=== PATIENT | female | born 1995 | race Caucasian/White ===

== ENCOUNTER 2017-05-27 13:25 | Observation (INO) | payer MEDICAID ==
[~2017-05-27] VITALS: Ht 170.2 cm; Wt 68.0 kg
[~2017-05-27 13:25] MED LIST: PREN-145 OR
[2017-05-27] MEDS ORDERED: TERBUTALINE SULFATE 1 MG/ML 1ML VIAL SC STA (14:05)
[2017-05-27 15:07] LABS: Urine Bacteria NONE SEEN /hpf (None Seen); Urine Blood Negative /uL (Negative); Urine Specific Gravity 1.002 (1.001-1.035); Urine WBC 1 /hpf (0 - 5)
[2017-05-27 15:24] LABS: Alcohol, Urine < 3.0 mg/dL (0-5); Amphetamine Screen, Urine NEGATIVE (NEGATIVE); Barbiturate Scree,Urine NEGATIVE (NEGATIVE); Benzodiazephine Screen, Urine NEGATIVE (NEGATIVE); Cannabinoid Screen, Urine POSITIVE (NEGATIVE); Cocaine Screen, Urine NEGATIVE (NEGATIVE); Opiate Scree,Urine NEGATIVE (NEGATIVE); Phencyclidine Screen, Urine NEGATIVE (NEGATIVE)
[2017-05-28] MEDS ORDERED: NIF10C PO (21:15)
== END 2017-05-27 16:00 | disposition home or self-care (01) | DRG 566 ==
LOC: LDRP 13:25
PROVIDERS: ADMIT Obstetrics & Gynecology; ATTEND Obstetrics & Gynecology
DX: O62.9 Abnormality of forces of labor, unspecified (principal); O60.03 Preterm labor without delivery, third trimester; Z3A.32 32 weeks gestation of pregnancy
CPT/HCPCS: 59025; 76815; 80307; 81001; 81002; 96372; G0378; J3105

== ENCOUNTER 2017-05-28 18:30 | Observation (INO) | payer MEDICAID ==
[2017-05-28] MEDS ORDERED: NIFEdipine 10 MG CAP ONE (19:09)
[2017-05-28] MEDS ORDERED: NIFEdipine 10 MG CAP PO ONE (19:15)
[2017-05-28] MEDS ORDERED: NIF10C PO (21:15)
== END 2017-05-28 19:40 | disposition home health service (06) | DRG 563 ==
LOC: LDRP 18:30
PROVIDERS: ADMIT Obstetrics & Gynecology; ATTEND Obstetrics & Gynecology
DX: O60.00 Preterm labor without delivery, unspecified trimester (principal); Z3A.00 Weeks of gestation of pregnancy not specified
CPT/HCPCS: 59025; 81002; G0378

== ENCOUNTER 2017-05-30 07:10 | Observation (INO) | payer MEDICAID ==
[~2017-05-30] VITALS: Ht 30.5 cm; Wt 0.5 kg
[~2017-05-30 07:10] MED LIST changes: +NIF10C PO
[2017-05-30 08:24] LABS: Urine Bacteria FEW /hpf (None Seen); Urine Blood Negative /uL (Negative); Urine Mucus FEW (None Seen); Urine Specific Gravity 1.014 (1.001-1.035); Urine WBC 22 /hpf (0 - 5)
[2017-05-30 08:25] LABS: Alcohol, Urine < 3.0 mg/dL (0-5); Amphetamine Screen, Urine NEGATIVE (NEGATIVE); Barbiturate Scree,Urine NEGATIVE (NEGATIVE); Benzodiazephine Screen, Urine NEGATIVE (NEGATIVE); Cannabinoid Screen, Urine POSITIVE (NEGATIVE); Cocaine Screen, Urine NEGATIVE (NEGATIVE); Opiate Scree,Urine NEGATIVE (NEGATIVE); Phencyclidine Screen, Urine NEGATIVE (NEGATIVE)
[2017-05-30] MEDS ORDERED: LACT. RINGERS/OXYTOCIN 20UNITS 1,000 ML IV SCH (09:27)
[2017-05-30] MEDS ORDERED: LACTATED RINGER'S 1,000 ML IV SCH (09:27)
[2017-05-30] MEDS ORDERED: METHYLERGONOVINE MALEATE 0.2 MG/ML AMP IM PRN (09:30)
[2017-05-30] MEDS ORDERED: NALBUPHINE HCL 10 MG/1ml INJECTION IV PRN (09:30)
[2017-05-30] MEDS ORDERED: CARBOPROST TROMETHAMINE 250 MCG/1ML VIAL IM PRN (09:30)
[2017-05-30] MEDS ORDERED: LIDOCAINE 2% (LOCAL ANESTH.) PF 5ml SDV ID ONE (09:30)
[2017-05-30] MEDS ORDERED: WITCH HAZEL-GLYCERIN PAD TOP PRN (09:30)
[2017-05-30] MEDS ORDERED: PHISODERM TOP SOLN 240ML BTL TOP PRN (09:30)
[2017-05-30] MEDS ORDERED: DERMOPLAST 60ML BOTTLE TOP PRN (09:30)
== END 2017-05-30 08:13 | disposition home or self-care (01) | DRG 563 ==
LOC: LDRP 07:10 → SUR 07:10 → EDSTATUS 07:21
PROVIDERS: ADMIT Specialist; ATTEND Specialist
DX: O60.03 Preterm labor without delivery, third trimester (principal); Z3A.32 32 weeks gestation of pregnancy
CPT/HCPCS: 59025; 80307; 81001; 81002; G0378

== ENCOUNTER 2017-06-05 13:00 | Observation (INO) | payer MEDICAID | END 2017-06-05 14:20 | disposition home or self-care (01) | DRG 563 | LOC: LDRP 13:00 → UNDODISOB 14:20 | PROVIDERS: ADMIT Specialist; ATTEND Specialist | DX: O60.03 Preterm labor without delivery, third trimester (principal); Z3A.33 33 weeks gestation of pregnancy | CPT/HCPCS: 59025; 81002; G0378 ==

== ENCOUNTER 2017-06-12 13:10 | Observation (INO) | payer MEDICAID | END 2017-06-12 14:05 | disposition home or self-care (01) | DRG 563 | LOC: LDRP 13:10 | PROVIDERS: ADMIT Obstetrics & Gynecology; ATTEND Obstetrics & Gynecology | DX: O60.03 Preterm labor without delivery, third trimester (principal); O99.323 Drug use complicating pregnancy, third trimester; F19.10 Other psychoactive substance abuse, uncomplicated; Z3A.34 34 weeks gestation of pregnancy | CPT/HCPCS: 59025; 81002; G0378 ==

== ENCOUNTER 2017-06-19 12:20 | Observation (INO) | payer MEDICAID ==
[2017-06-19] MEDS ORDERED: TERBUTALINE SULFATE 1 MG/ML 1ML VIAL SC SCH (13:30)
== END 2017-06-19 14:35 | disposition home or self-care (01) | DRG 563 ==
LOC: LDRP 12:20
PROVIDERS: ADMIT Obstetrics & Gynecology; ATTEND Obstetrics & Gynecology
DX: O60.03 Preterm labor without delivery, third trimester (principal); O99.323 Drug use complicating pregnancy, third trimester; F19.10 Other psychoactive substance abuse, uncomplicated; Z3A.35 35 weeks gestation of pregnancy
CPT/HCPCS: 59025; 81002; 96372; G0378; J3105

== ENCOUNTER 2017-06-25 11:00 | Observation (INO) | payer MEDICAID | END 2017-06-25 12:30 | disposition home or self-care (01) | DRG 566 | LOC: LDRP 11:00 | PROVIDERS: ADMIT Obstetrics & Gynecology; ATTEND Obstetrics & Gynecology | DX: O62.9 Abnormality of forces of labor, unspecified (principal); O60.03 Preterm labor without delivery, third trimester; Z3A.36 36 weeks gestation of pregnancy | CPT/HCPCS: 59025; 76818; 81002; G0378 ==

== ENCOUNTER 2017-06-30 19:36 | Observation (INO) | payer MEDICAID ==
[~2017-06-30 19:36] MED LIST changes: -NIF10C PO
[2017-06-30 20:32] LABS: Urine Amorphous Crystal FEW /hpf (None Seen); Urine Bacteria FEW /hpf (None Seen); Urine Blood Negative /uL (Negative); Urine Specific Gravity 1.007 (1.001-1.035); Urine WBC 38 /hpf (0 - 5)
[2017-06-30 20:55] LABS: Alcohol, Urine < 3.0 mg/dL (0-5); Amphetamine Screen, Urine NEGATIVE (NEGATIVE); Barbiturate Scree,Urine NEGATIVE (NEGATIVE); Benzodiazephine Screen, Urine NEGATIVE (NEGATIVE); Cannabinoid Screen, Urine POSITIVE (NEGATIVE); Cocaine Screen, Urine NEGATIVE (NEGATIVE); Opiate Scree,Urine NEGATIVE (NEGATIVE); Phencyclidine Screen, Urine NEGATIVE (NEGATIVE)
== END 2017-06-30 20:37 | disposition home or self-care (01) | DRG 566 ==
LOC: LDRP 19:36
PROVIDERS: ADMIT Obstetrics & Gynecology; ATTEND Obstetrics & Gynecology
DX: O26.893 Other specified pregnancy related conditions, third trimester (principal); R10.9 Unspecified abdominal pain; Z3A.37 37 weeks gestation of pregnancy
CPT/HCPCS: 80307; 81001; G0378; 59025

== ENCOUNTER 2017-07-10 12:25 | Inpatient (IN) | payer MEDICAID ==
[~2017-07-10] VITALS: Ht 170.2 cm; Wt 71.7 kg
[2017-07-10] MEDS ORDERED: LACT. RINGERS/OXYTOCIN 20UNITS 1,000 ML IV SCH (15:03)
[2017-07-10] MEDS ORDERED: PHISODERM TOP SOLN 240ML BTL TOP PRN (15:15)
[2017-07-10] MEDS ORDERED: DERMOPLAST 60ML BOTTLE TOP PRN (15:15)
[2017-07-10] MEDS ORDERED: METHYLERGONOVINE MALEATE 0.2 MG/ML AMP IM PRN (15:15)
[2017-07-10] MEDS ORDERED: WITCH HAZEL-GLYCERIN PAD TOP PRN (15:15)
[2017-07-10] MEDS ORDERED: NALBUPHINE HCL 10 MG/1ml INJECTION IV PRN (15:15)
[2017-07-10] MEDS ORDERED: LIDOCAINE 2% (LOCAL ANESTH.) PF 5ml SDV ID ONE (15:15)
[2017-07-10 15:37] LABS: Basophils # (auto) 0.1 uL; Basophils % (auto) 0.4 % (0.0-2.0); Eosinophils # (auto) 0 uL; Eosinophils % (auto) 0.1 % (0.0-7.0); Hematocrit 38.5 % (36.0-46.0); Hemoglobin 12.9 g/dL (12.2-16.2); Lymphocytes # (auto) 3.2 uL; Mean Corpuscular Hgb Conc. 33.5 g/dL (32.0-36.0); Mean Corpuscular Volume 92.7 fL (80.0-100.0); Monocytes # (auto) 1.1 uL; Monocytes % (auto) 4.7 % (0.0-12.0); Neutrophils # (auto) 19.8 uL; Neutrophils % (auto) 81.8 % (37.0-80.0); Platelet Count (auto) 252 10^3/uL (140-450); Red Blood Cells 4.15 10^6/uL (4.0-5.20); White Blood Cell 24.3 10^3/uL (4.4-10.8)
[2017-07-10 15:56] LABS: INR 0.86 (0.9-1.15); Partial Thromboplastin Time 24.3 sec (23.78-33.04); Prothrombin Time 9.3 sec (9.27-12.13)
[2017-07-10 16:00] LABS: Albumin 2.7 g/dL (3.4-5.0); BUN/Creatinine Ratio 9.6; Calcium 8.6 mg/dL (8.5-10.1); Potassium 3.5 mmol/L (3.5-5.1)
[2017-07-10 16:03] LABS: Bilirubin, Total 0.4 mg/dL (0.2-1.0); Total Protein 7.1 g/dL (6.4-8.2)
[2017-07-10 16:23] LABS: Alcohol, Urine < 3.0 mg/dL (0-5); Amphetamine Screen, Urine NEGATIVE (NEGATIVE); Barbiturate Scree,Urine NEGATIVE (NEGATIVE); Benzodiazephine Screen, Urine NEGATIVE (NEGATIVE); Cannabinoid Screen, Urine NEGATIVE (NEGATIVE); Cocaine Screen, Urine NEGATIVE (NEGATIVE); Opiate Scree,Urine NEGATIVE (NEGATIVE); Phencyclidine Screen, Urine NEGATIVE (NEGATIVE)
[2017-07-10 16:41] LABS: Urine Bacteria NONE SEEN /hpf (None Seen); Urine Blood Negative /uL (Negative); Urine Specific Gravity 1.003 (1.001-1.035); Urine WBC 1 /hpf (0 - 5)
[2017-07-10] MEDS ORDERED: fentaNYL W ROPIVACAINE 150 ML EPI SCH ×2 (17:15→18:15)
[2017-07-10] MEDS ORDERED: ePHEDrine SULFATE 50 MG/ML AMP IV ONE ×2 (17:15→18:15)
[2017-07-10] MEDS ORDERED: NALOXONE HCL 0.4 MG/ML VIAL IV ONE ×2 (17:15→18:15)
[2017-07-10] MEDS ORDERED: fentaNYL CITRATE 100 MCG/2 ML VL IV ONE (17:15)
[2017-07-10] MEDS ORDERED: LIDOCAINE HCL 2 %PF INJ 10ML AMP IJ ONE (17:15)
[2017-07-10] MEDS ORDERED: LIDOCAINE 2% (LOCAL ANESTH.) PF 5ml SDV IJ ONE (18:15)
[2017-07-10] MEDS: LACTATED RINGER'S 1,000 ML IV SCH ×2 (19:00→23:03)
[2017-07-10] MEDS ORDERED: IBUPROFEN 600 MG TAB PO PRN (21:00)
[2017-07-10] MEDS: IBUPROFEN 600 MG TAB PO PRN (23:10)
[2017-07-11] MEDS: ACETAMINOPHEN 325 MG TAB PO PRN ×4 (02:39→19:49)
[2017-07-11 03:40] VITALS: BP 104/50
[2017-07-11 04:11] LABS: RPR Non Reactive (Non Reactive)
[2017-07-11] MEDS: IBUPROFEN 600 MG TAB PO PRN ×3 (05:35→17:31)
[2017-07-11] MEDS: LACTATED RINGER'S 1,000 ML IV SCH (07:03)
[2017-07-11] MEDS ORDERED: DOCUSATE CALCIUM 240 MG CAP PO SCH (10:00)
[2017-07-11 11:18] VITALS: BP 108/58
[2017-07-11 15:35] VITALS: BP 118/58
== END 2017-07-11 21:00 | disposition home or self-care (01) | DRG 560 ==
LOC: LDRP 12:25 → OBSVTOIN 14:40
PROVIDERS: ADMIT Specialist; ATTEND Specialist
PROC: 10E0XZZ Delivery of Products of Conception, External Approach (ICD-10-PCS; principal; 2017-07-10)
PROC: 0HQ9XZZ Repair Perineum Skin, External Approach (ICD-10-PCS; 2017-07-10)
PROC: 10907ZC Drainage of Amniotic Fluid, Therapeutic from Products of Conception, Via Natural or Artificial Opening (ICD-10-PCS; 2017-07-10)
PROC: 00HU33Z Insertion of Infusion Device into Spinal Canal, Percutaneous Approach (ICD-10-PCS; 2017-07-10)
PROC: 3E0R3BZ Introduction of Anesthetic Agent into Spinal Canal, Percutaneous Approach (ICD-10-PCS; 2017-07-10)
DX: O70.9 Perineal laceration during delivery, unspecified (principal); O72.1 Other immediate postpartum hemorrhage; Z88.1 Allergy status to other antibiotic agents; Z88.6 Allergy status to analgesic agent; Z37.0 Single live birth; Z3A.38 38 weeks gestation of pregnancy
CPT/HCPCS: 36415; 51702; 59025; 59409; 62282; 80053; 80307; 81001; 81002; 85025; 85610; 85730; 86592; 86850; 86900; 86901; 96365; 96366; G0378; J2590; J3010

== ENCOUNTER 2019-08-05 16:10 | Inpatient (IN) | payer MEDICAID ==
[~2019-08-05] VITALS: Ht 170.2 cm; Wt 70.8 kg
[2019-08-05] MEDS ORDERED: LACTATED RINGER'S 1,000 ML IV ONE (17:00)
[2019-08-05] MEDS ORDERED: TERBUTALINE SULFATE 1 MG/ML 1ML VIAL SC ONE (17:02)
[2019-08-05] MEDS: TERBUTALINE SULFATE 1 MG/ML 1ML VIAL SC SCH ×3 (17:05→18:25)
[2019-08-05 18:09] LABS: Urine Bacteria NONE SEEN /hpf (None Seen); Urine Blood Negative /uL (Negative); Urine Specific Gravity 1.001 (1.001-1.035); Urine WBC 1 /hpf (0 - 5)
[2019-08-05 18:21] LABS: Amphetamine Screen, Urine NEGATIVE (NEGATIVE); Barbiturate Scree,Urine NEGATIVE (NEGATIVE); Benzodiazephine Screen, Urine NEGATIVE (NEGATIVE); Cocaine Screen, Urine NEGATIVE (NEGATIVE); Opiate Scree,Urine NEGATIVE (NEGATIVE); Phencyclidine Screen, Urine NEGATIVE (NEGATIVE)
[2019-08-05 18:29] LABS: Cannabinoid Screen, Urine POSITIVE (NEGATIVE)
[2019-08-05 18:31] LABS: Alcohol, Urine < 3.0 mg/dL (0-10)
[2019-08-05] MEDS ORDERED: BETAMETHASONE ACET (6MG/ML) 5ML VIAL IM ONE (19:15)
[2019-08-05] MEDS ORDERED: NIFEdipine 10 MG CAP PO ONE ×2 (19:15→20:45)
[2019-08-05] MEDS ORDERED: MAGNESIUM SULFATE 40MG/ML 1,000 ML IV SCH (22:06)
[2019-08-05] MEDS ORDERED: LACTATED RINGER'S 1,000 ML IV SCH (22:06)
[2019-08-05] MEDS ORDERED: MAGNESIUM SULFATE 100 ML IV ONE (22:15)
[2019-08-06 01:27] LABS: Potassium 3.6 mmol/L (3.5-5.1)
[2019-08-06 01:50] LABS: Albumin 2.6 g/dL (3.4-5.0); BUN/Creatinine Ratio 7.4; Bilirubin, Total 0.3 mg/dL (0.2-1.0); Calcium 7.7 mg/dL (8.5-10.1); Magnesium,Therapeutic 4.3 mg/dL (4.0-7.1); Total Protein 6.6 g/dL (6.4-8.2)
[2019-08-06] MEDS ORDERED: CEFTRIAXONE SODIUM 2 GM in D5W 5% 50 ML IV ONE (08:15)
[2019-08-06] MEDS ORDERED: SOD CHL 0.45% 1,000 ML IV SCH (08:15)
[2019-08-06] MEDS ORDERED: SODIUM CHLORIDE 0.9% 1,000 ML IV SCH (08:45)
[2019-08-06] MEDS ORDERED: MAGNESIUM SULFATE 40MG/ML 1,000 ML IV SCH (09:22)
[2019-08-06] MEDS: SODIUM CHLORIDE 0.9% 1,000 ML IV SCH ×2 (10:00→19:28)
[2019-08-06 12:47] LABS: INR 0.94 (0.9-1.15); Partial Thromboplastin Time 23.4 sec (23.64-32.05)
[2019-08-06 12:50] LABS: Hematocrit 38.6 % (36.0-46.0); Hemoglobin 12.8 g/dL (12.2-16.2); Mean Corpuscular Hemoglobin 30.7 pg (28.0-32.0); Mean Corpuscular Hgb Conc. 33.3 g/dL (32.0-36.0); Mean Corpuscular Volume 92.3 fL (80.0-100.0); Platelet Count (auto) 248 10^3/uL (140-450); Red Blood Cells 4.18 10^6/uL (4.0-5.20); Red Cell Distribution Width 13.3 % (11.8-14.3)
[2019-08-06 13:15] LABS: White Blood Cell 31.7 10^3/uL (4.4-10.8)
[2019-08-06 13:16] LABS: Band Neutrophils % (manual) 0; Basophils % (manual) 0 (0.0-2.0); Blast Cells 0; Eosinophils % (manual) 0 (0-7); Metamyelocytes % 0; Myelocytes % 0; Promyelocytes % 0; Reactive Lymphocytes 0
[2019-08-06 14:19] LABS: Hematocrit 35.6 % (36.0-46.0); Mean Corpuscular Hemoglobin 31.4 pg (28.0-32.0); Mean Corpuscular Hgb Conc. 33.8 g/dL (32.0-36.0); Platelet Count (auto) 236 10^3/uL (140-450); Red Blood Cells 3.82 10^6/uL (4.0-5.20); Red Cell Distribution Width 13.2 % (11.8-14.3)
[2019-08-06 14:28] LABS: White Blood Cell 31.3 10^3/uL (4.4-10.8)
[2019-08-06 14:29] LABS: Band Neutrophils % (manual) 0; Basophils % (manual) 0 (0.0-2.0); Blast Cells 0; Eosinophils % (manual) 0 (0-7); Metamyelocytes % 0; Myelocytes % 0; Promyelocytes % 0; Reactive Lymphocytes 0
[2019-08-06 15:38] LABS: Lymphocytes % (manual) 6 (10.0-50.0); Monocytes % (manual) 8 (0-12)
[2019-08-06 15:50] LABS: Lymphocytes % (manual) 6 (10.0-50.0); Monocytes % (manual) 8 (0-12)
[2019-08-06] MEDS ORDERED: BETAMETHASONE ACET (6MG/ML) 5ML VIAL IM ONE (19:30)
[2019-08-06] MEDS: cefTRIAXone 1GM/50ML D5W 50 ML IV SCH (20:56)
[2019-08-06] MEDS ORDERED: TERBUTALINE SULFATE 1 MG/ML 1ML VIAL SC PRN (21:30)
[2019-08-06] MEDS ORDERED: LACTATED RINGER'S 1,000 ML IV SCH (23:00)
[2019-08-07] MEDS ORDERED: NIFEdipine 10 MG CAP PO ONE (06:00)
[2019-08-07] MEDS: cefTRIAXone 1GM/50ML D5W 50 ML IV SCH (08:55)
[2019-08-07] MEDS ORDERED: NIFEdipine 10 MG CAP PO SCH (10:00)
--- NOTE | 2019-08-07 12:20 | NUR ---
IV removal IV DC'd x2 with sterile technique, catheter fully intact. Pressure dressing applied to site. Patient tolerated procedure well.
== END 2019-08-07 12:40 | disposition home or self-care (01) | DRG 563 ==
LOC: LDRP 16:10 → OBSVTOIN 23:00
PROVIDERS: ADMIT Specialist; ATTEND Specialist
DX: O60.03 Preterm labor without delivery, third trimester (principal); K08.89 Other specified disorders of teeth and supporting structures; Z3A.32 32 weeks gestation of pregnancy; Z11.59 Encounter for screening for other viral diseases
CPT/HCPCS: 36415; 59025; 76805; 80053; 80307; 81001; 81002; 83735; 85007; 85027; 85610; 85730; 86850; 86900; 86901; 87086; 87210; 94760; 94762; 96360; 96361; 96365; 96366; 96372; G0378; J0696; J7060

== ENCOUNTER 2019-08-10 09:17 | Observation (INO) | payer MEDICAID ==
[~2019-08-10] VITALS: Ht 165.1 cm; Wt 61.2 kg
[2019-08-10] MEDS ORDERED: NIF10C GT (09:39)
[2019-08-10] MEDS ORDERED: AMOX500T86 PO (09:41)
[2019-08-10] MEDS ORDERED: NIFEdipine 10 MG CAP PO ONE ×2 (12:00→16:30)
[2019-08-10] MEDS ORDERED: NIFEdipine 10 MG CAP ONE (12:08)
[2019-08-10] MEDS ORDERED: TERBUTALINE SULFATE 1 MG/ML 1ML VIAL SC ONE (12:23)
[2019-08-10] MEDS ORDERED: TERBUTALINE SULFATE 1 MG/ML 1ML VIAL SC SCH (12:30)
[2019-08-10 16:08] LABS: Basophils # (auto) 0.1 10 ^3/uL (0-0.2); Basophils % (auto) 0.2 % (0.0-2.0); Eosinophils # (auto) 0.1 10 ^3/uL (0-0.8); Eosinophils % (auto) 0.4 % (0.0-7.0); Hematocrit 37.7 % (36.0-46.0); Hemoglobin 12.5 g/dL (12.2-16.2); Lymphocytes # (auto) 3.3 10 ^3/uL (0.4-5.4); Lymphocytes % (auto) 13.7 % (10.0-50.0); Mean Corpuscular Hemoglobin 30.8 pg (28.0-32.0); Mean Corpuscular Hgb Conc. 33.2 g/dL (32.0-36.0); Mean Corpuscular Volume 92.9 fL (80.0-100.0); Monocytes # (auto) 1.6 10 ^3/uL (0-1.3); Monocytes % (auto) 6.6 % (0.0-12.0); Neutrophils % (auto) 79.1 % (37.0-80.0); Platelet Count (auto) 248 10^3/uL (140-450); Red Blood Cells 4.06 10^6/uL (4.0-5.20); Red Cell Distribution Width 13.1 % (11.8-14.3)
[2019-08-10 16:23] LABS: INR 0.95 (0.9-1.15); Partial Thromboplastin Time 22.8 sec (23.64-32.05)
[2019-08-10 16:26] LABS: Albumin 2.8 g/dL (3.4-5.0); Calcium 8.3 mg/dL (8.5-10.1); Potassium 3.6 mmol/L (3.5-5.1)
[2019-08-10 16:29] LABS: BUN/Creatinine Ratio 12.8; Bilirubin, Total 0.2 mg/dL (0.2-1.0); Total Protein 6.8 g/dL (6.4-8.2)
[2019-08-10 16:46] LABS: Urine Bacteria NONE SEEN /hpf (None Seen); Urine Blood Negative /uL (Negative); Urine Specific Gravity 1.006 (1.001-1.035); Urine WBC 42 /hpf (0 - 5)
[2019-08-10 16:50] LABS: Amphetamine Screen, Urine NEGATIVE (NEGATIVE); Barbiturate Scree,Urine NEGATIVE (NEGATIVE); Benzodiazephine Screen, Urine NEGATIVE (NEGATIVE); Cannabinoid Screen, Urine POSITIVE (NEGATIVE); Cocaine Screen, Urine NEGATIVE (NEGATIVE); Opiate Scree,Urine NEGATIVE (NEGATIVE); Phencyclidine Screen, Urine NEGATIVE (NEGATIVE)
[2019-08-10 17:01] LABS: Alcohol, Urine < 3.0 mg/dL (0-10)
== END 2019-08-10 17:45 | disposition home or self-care (01) | DRG 563 ==
LOC: LDRP 09:17
PROVIDERS: ADMIT Specialist; ATTEND Specialist
DX: O60.03 Preterm labor without delivery, third trimester (principal); O99.323 Drug use complicating pregnancy, third trimester; O62.9 Abnormality of forces of labor, unspecified; O26.893 Other specified pregnancy related conditions, third trimester; K04.7 Periapical abscess without sinus; Z3A.32 32 weeks gestation of pregnancy; Z91.19 Patient's noncompliance with other medical treatment and regimen
CPT/HCPCS: 36415; 59025; 76818; 80053; 80307; 81001; 81002; 84550; 85025; 85610; 85730; 96372; G0378; J3105

== ENCOUNTER 2019-08-18 08:43 | Observation (INO) | payer MEDICAID ==
[~2019-08-18 08:43] MED LIST changes: +AMOX500T86 PO; +NIF10C GT
== END 2019-08-18 09:17 | disposition home or self-care (01) | DRG 563 ==
LOC: LDRP 08:43
PROVIDERS: ADMIT Specialist; ATTEND Specialist
DX: O60.03 Preterm labor without delivery, third trimester (principal); Z3A.33 33 weeks gestation of pregnancy
CPT/HCPCS: 59025; 76818; 81002; G0378

== ENCOUNTER 2019-08-25 10:57 | Observation (INO) | payer MEDICAID | END 2019-08-25 12:45 | disposition home or self-care (01) | DRG 563 | LOC: LDRP 10:57 | PROVIDERS: ADMIT Specialist; ATTEND Specialist | DX: O60.03 Preterm labor without delivery, third trimester (principal); Z3A.34 34 weeks gestation of pregnancy | CPT/HCPCS: 59025; 76818; 81002; G0378 ==

== ENCOUNTER 2019-08-30 14:06 | Observation (INO) | payer MEDICAID | END 2019-08-30 15:21 | disposition home or self-care (01) | DRG 563 | LOC: LDRP 14:06 | PROVIDERS: ADMIT Specialist; ATTEND Specialist | DX: O60.03 Preterm labor without delivery, third trimester (principal); Z3A.35 35 weeks gestation of pregnancy | CPT/HCPCS: 59025; 76818; 81002; G0378 ==

== ENCOUNTER 2019-09-06 09:31 | Observation (INO) | payer MEDICAID | END 2019-09-06 10:30 | disposition home or self-care (01) | DRG 563 | LOC: LDRP 09:31 | PROVIDERS: ADMIT Specialist; ATTEND Specialist | DX: O60.03 Preterm labor without delivery, third trimester (principal); Z3A.36 36 weeks gestation of pregnancy | CPT/HCPCS: 59025; 76818; 81002; G0378 ==

== ENCOUNTER 2019-09-10 17:38 | Observation (INO) | payer MEDICAID ==
[~2019-09-10 17:38] MED LIST changes: -AMOX500T86 PO; -NIF10C GT
[2019-09-10 20:06] LABS: Alcohol, Urine < 3.0 mg/dL (0-10); Amphetamine Screen, Urine NEGATIVE (NEGATIVE); Barbiturate Scree,Urine NEGATIVE (NEGATIVE); Benzodiazephine Screen, Urine NEGATIVE (NEGATIVE); Cannabinoid Screen, Urine POSITIVE (NEGATIVE); Cocaine Screen, Urine NEGATIVE (NEGATIVE); Opiate Scree,Urine NEGATIVE (NEGATIVE); Phencyclidine Screen, Urine NEGATIVE (NEGATIVE)
== END 2019-09-10 19:27 | disposition home or self-care (01) | DRG 566 ==
LOC: LDRP 17:38
PROVIDERS: ADMIT Specialist; ATTEND Specialist
DX: O36.8130 Decreased fetal movements, third trimester, not applicable or unspecified (principal); Z3A.37 37 weeks gestation of pregnancy
CPT/HCPCS: 59025; 76818; 80307; 81002; G0378

== ENCOUNTER 2019-09-19 20:49 | Observation (INO) | payer MEDICAID | END 2019-09-19 21:35 | disposition home or self-care (01) | DRG 566 | LOC: LDRP 20:49 | PROVIDERS: ADMIT Specialist; ATTEND Specialist | DX: O62.9 Abnormality of forces of labor, unspecified (principal); Z3A.38 38 weeks gestation of pregnancy | CPT/HCPCS: 59025; 81002; G0378 ==

== ENCOUNTER 2019-09-20 17:45 | Inpatient (IN) | payer MEDICAID ==
[~2019-09-20] VITALS: Ht 170.2 cm; Wt 69.9 kg
[2019-09-20] MEDS ORDERED: LACT. RINGERS/OXYTOCIN 20UNITS 1,000 ML IV SCH (22:07)
[2019-09-20] MEDS ORDERED: LACTATED RINGER'S 1,000 ML IV SCH (22:07)
[2019-09-20] MEDS ORDERED: CARBOPROST TROMETHAMINE 250 MCG/1ML VIAL IM PRN (22:15)
[2019-09-20] MEDS ORDERED: WITCH HAZEL-GLYCERIN PAD TOP PRN (22:15)
[2019-09-20] MEDS ORDERED: PHISODERM TOP SOLN 240ML BTL TOP PRN (22:15)
[2019-09-20] MEDS ORDERED: DERMOPLAST 60ML BOTTLE TOP PRN (22:15)
[2019-09-20] MEDS ORDERED: BUTORPHANOL TARTRATE 2 MG/1 ML VIAL IV PRN (22:15)
[2019-09-20] MEDS ORDERED: LIDOCAINE 2%HCL (LOCAL ANESTH.) INJ 20ML MDV ID ONE (22:15)
[2019-09-20] MEDS ORDERED: METHYLERGONOVINE MALEATE 0.2 MG/ML AMP IM PRN (22:15)
--- NOTE | 2019-09-20 23:15 | NUR ---
Teaching: Reviewed information in [facility] [employer] booklet with patient. Discussed benefits of and risks associated with not . Discussed different positions, proper latch, feeding cues, and baby-led . Provided information of medication side effects related to . All questions and concerns addressed at this time. Patient verbalized understanding of information.
--- NOTE | 2019-09-20 23:40 | NUR ---
Bottle-feeding Education: Patient encouraged to breastfeed. Benefits of and the risk of providing formula to was discussed. Patient verbalized understanding of the benefits and is aware of risk and insists on bottle-feeding. Formula provided and instruction on formula preparation from the [facility] booklet reviewed with patient.
[2019-09-20] MEDS ORDERED: METHYLERGONOVINE MALEATE 0.2 MG/ML AMP IM ONE (23:45)
--- NOTE | 2019-09-20 23:46 | NUR ---
Pt states she takes ibuprofen at home for pain and pt states she is unsure if she is really allergic to aspirin, it was told by her mother that she was allergic to aspirin from a young age.
[2019-09-21] MEDS: IBUPROFEN 600 MG TAB PO PRN ×5 (00:02→23:57)
[2019-09-21 00:03] LABS: Hematocrit 37.5 % (36.0-46.0); Hemoglobin 12.5 g/dL (12.2-16.2); Mean Corpuscular Hgb Conc. 33.5 g/dL (32.0-36.0); Mean Corpuscular Volume 92.6 fL (80.0-100.0); Platelet Count (auto) 217 10^3/uL (140-450); Red Blood Cells 4.04 10^6/uL (4.0-5.20); Red Cell Distribution Width 13.6 % (11.8-14.3); White Blood Cell 28.3 10^3/uL (4.4-10.8)
[2019-09-21 00:09] LABS: Basophils % (manual) 0 (0.0-2.0); Blast Cells 0; Eosinophils % (manual) 0 (0-7); Metamyelocytes % 0; Myelocytes % 0; Promyelocytes % 0; Reactive Lymphocytes 0
[2019-09-21 00:11] LABS: Urine Bacteria NONE SEEN /hpf (None Seen); Urine Blood Negative /uL (Negative); Urine Specific Gravity 1.004 (1.001-1.035); Urine WBC 1 /hpf (0 - 5)
[2019-09-21 00:17] LABS: INR 0.92 (0.9-1.15); Partial Thromboplastin Time 23.5 sec (23.0-31.2)
[2019-09-21 00:19] LABS: Albumin 2.6 g/dL (3.4-5.0); Calcium 8.1 mg/dL (8.5-10.1)
[2019-09-21 00:22] LABS: BUN/Creatinine Ratio 10.3
[2019-09-21 00:25] LABS: Bilirubin, Total 0.3 mg/dL (0.2-1.0); Total Protein 6.6 g/dL (6.4-8.2)
[2019-09-21 00:26] LABS: Alcohol, Urine < 3.0 mg/dL (0-10); Amphetamine Screen, Urine NEGATIVE (NEGATIVE); Barbiturate Scree,Urine NEGATIVE (NEGATIVE); Benzodiazephine Screen, Urine NEGATIVE (NEGATIVE); Cannabinoid Screen, Urine POSITIVE (NEGATIVE); Cocaine Screen, Urine NEGATIVE (NEGATIVE); Opiate Scree,Urine NEGATIVE (NEGATIVE); Phencyclidine Screen, Urine NEGATIVE (NEGATIVE)
[2019-09-21 00:55] LABS: Band Neutrophils % (manual) 6; Lymphocytes % (manual) 8 (10.0-50.0); Monocytes % (manual) 2 (0-12)
--- NOTE | 2019-09-21 01:02 | NUR ---
Ambulation: Patient OOB with standby assistance by RN. Patient ambulated to bathroom with steady gait. Patient able to void 350cc without difficulty. [facility] teaching provided with returned demonstration by patient. Clean gown provided and bed linen changed. Patient ambulated back to bed with steady gait and no distress noted.
[2019-09-21] MEDS: ACETAMINOPHEN 325 MG TAB PO PRN ×4 (01:36→22:05)
[2019-09-21] MEDS ORDERED: PROMETHAZINE HCL 25 MG/ML 1ML IM ONE (02:00)
[2019-09-21 02:32] VITALS: BP 117/57
[2019-09-21 06:49] VITALS: BP 101/48
[2019-09-21 11:00] VITALS: BP 112/55
--- NOTE | 2019-09-21 12:00 | NUR ---
Assessment Patient is a 23-year old female who is alert and oriented. Social Service consult regarding mother tested Positive THC on this visit and Baby was negative for drug screen. Discussed with patient UDS and source of positive results. Patient stated she only consume one THC 1-2 times a week when she was unable to sleep. Patient resides with her significant other and will assistance with baby upon discharge. Patient has all supplies as well as car seat for baby and will be bottle feed/ breast feed. Patient has medical insurance for herself and baby and will be following up with provider appt post discharge. Pt has transportation home upon discharge. Due to baby drug screen being negative, CPS will not be contacted. Patient has family support. Baby father was at bedside. Informed HARLEY Gibbs.
[2019-09-21 14:43] VITALS: BP 101/49
[2019-09-21 18:34] VITALS: BP 114/57
--- NOTE | 2019-09-21 18:52 | NUR ---
IV removal IV DC'd per 's orders, with clean sterile technique, catheter fully intact. Pressure dressing applied to site. Patient tolerated well.
[2019-09-21 23:08] VITALS: BP 120/78
[2019-09-22] MEDS: ACETAMINOPHEN 325 MG TAB PO PRN (01:21)
[2019-09-22 03:03] VITALS: BP 105/51
[2019-09-22 05:06] LABS: RPR Non Reactive (Non Reactive)
[2019-09-22] MEDS: IBUPROFEN 600 MG TAB PO PRN (05:28)
[2019-09-22 06:37] VITALS: BP 115/56
--- NOTE | 2019-09-22 08:24 | NUR ---
Discharge: Discharge instructions given as ordered. Pt encouraged to follow up with [facility] ATTENDANT as instructed. All questions and concerns addressed. Patient verbalized understanding. Medication reconciliation completed and copy given to patient. Patient encouraged to prepare to depart unit. Discharge: Patient taken to vehicle via ambulation with all personal belongings, accompanied by staff and family member. No distress noted at time of departure, no adverse changes in status since initial assessment.
== END 2019-09-22 08:24 | disposition home or self-care (01) | DRG 560 ==
LOC: LDRP 17:45 → UNDOADMOB 19:43 → LDRP 19:43 → INTOOBSV 21:51 → OBSVTOIN 21:51
PROVIDERS: ADMIT Specialist; ATTEND Specialist
PROC: 10E0XZZ Delivery of Products of Conception, External Approach (ICD-10-PCS; principal; 2019-09-20)
DX: O69.1XX0 Labor and delivery complicated by cord around neck, with compression, not applicable or unspecified (principal); Z37.0 Single live birth; Z3A.38 38 weeks gestation of pregnancy; Z88.6 Allergy status to analgesic agent; Z11.59 Encounter for screening for other viral diseases
CPT/HCPCS: 36415; 59025; 59409; 80053; 80307; 81001; 81002; 84112; 85007; 85027; 85610; 85730; 86592; 86850; 86900; 86901; 96360; 96361; 96365; 96372; 96374; G0378; J2590

== ENCOUNTER 2023-12-23 22:21 | Observation (INO) | payer MEDICAID ==
[~2023-12-23] VITALS: Ht 170.2 cm; Wt 72.6 kg
[2023-12-23] MEDS ORDERED: ONDANSETRON HCL 4 MG/2 ML VIAL IV ONE (23:00)
[2023-12-23] MEDS: LACTATED RINGER'S 1,000 ML IV ONE (23:13)
[2023-12-24 00:16] LABS: Rapid Influenza A Negative (Negative); Rapid Influenza B Negative (Negative)
[2023-12-24 00:17] LABS: COVID19 ANTIGEN SOFIA FIA NEGATIVE (NEGATIVE)
--- NOTE | 2023-12-24 00:56 | DVHDS2 ---
Physician Discharge Progress N Final Diagnosis: N/V and cold Operations or Procedures: Operations or Procedures S: 28yo IUP@23+wks presents to OB triage with c/o DFM and N/V with a cold. Denies VB. Had sex yesterday and has been vomiting today, so noticed random uterine cramps during the day. PNC with Dr. Hsu, uncomplicated. Pt reports +FM in triage. O: VSS UA wnl 1L LR IV bolus given Pt declined zofran. FHR 135 by RN Laboratory Tests Test 12/23/23 23:00 Range/Units Influenza Type A Antigen Negative Negative Influenza Type B Antigen Negative Negative SARS-CoV-2 Antigen (Rapid) Negative NEGATIVE A: 28yo IUP@23+wks N/V and cold P: D/C home Pt educated that FKC start at 28 weeks PO hydrate at home Dr. Hsu consulted, agrees with POC. Condition on Discharge: Stable Disposition: Home Discharge Instructions: Diet: Regular Activity: No Restrictions, As Tolerated Medications: PNV Follow Up Care: Specialist: f/u with Dr. Hsu as scheduled Discharge Statement: "Patient was advised to return to the ER or call 911 if any headaches, dizziness, shortness of breath, chest pain, abdominal pain, bleeding, fevers, or worsening of medical condition. Patient was counseled about treatment plan, medications, possible side effects, patientverbalized understanding. All questions were answered to the best of my ability. This discharge took greater then 30 minutes in planning, reviewing documentation, counseling the patient, and discussing with other team members." RANDY KELLER CNM Dec 24, 2023 00:56
== END 2023-12-24 00:33 | disposition home or self-care (01) ==
LOC: LDRP 22:21
PROVIDERS: ADMIT Obstetrics & Gynecology; ATTEND Obstetrics & Gynecology
DX: O36.8120 Decreased fetal movements, second trimester, not applicable or unspecified (principal); O21.2 Late vomiting of pregnancy; Z3A.23 23 weeks gestation of pregnancy; Z79.899 Other long term (current) drug therapy; Z98.890 Other specified postprocedural states; Z20.822 Contact with and (suspected) exposure to COVID-19
CPT/HCPCS: 36415; 59025; 81002; 87426; 87804; 94760; 96360; 96361; G0378

== ENCOUNTER 2024-01-12 20:46 | Observation (INO) | payer MEDICAID ==
[2024-01-12 21:59] LABS: Vaginal Bacteria Few; Vaginal Clue Cells Few; Vaginal Epithelial Cells Few; Vaginal Trichomonas Not Present
[2024-01-12 22:00] LABS: Fern Testing Negative
--- NOTE | 2024-01-12 22:01 | DVH ---
LIMITED OB ULTRASOUND > 14 WKS: HISTORY: leaking of fluid and contractions TECHNIQUE: Multiple real-time grayscale images of the gravid uterus with duplex Doppler color flow an d M-mode spectral analysis. TRANSDUCER: Transabdominal FINDINGS: IUP single live fetus at 26 weeks 0 days based on composite averages of the BPD, head circumference, abdominal circumference and femur length heart rate 142 beats per minute AMITA 17.36 cm; MVP: 6.08 cm Cervix 3.57 cm in appears closed Transverse and on maternal right Presentation Placenta is posterior without previa or abruption. IMPRESSION: 1. IUP single live fetus at 26 weeks 0 AUA corresponding to an DEQUAN of 04/19/2024. 2. FHR: 142 beats per minute 3. AMITA: 17.36 cm
[2024-01-12] MEDS ORDERED: NITR-52 PO (22:33)
--- NOTE | 2024-01-13 05:15 | DVHDS2 ---
Obstetrics Discharge Summary Obstetrics Discharge Summary Date of Admission: Jan 12, 2024 Date of Discharge: Jan 12, 2024 Reason For Admission: Observational/Evaluation ( Status) Procedures: NST, Ultrasound Discharge Diagnosis: Others (25+ weeks rule out from reassuring heart tone in maternal condition) Discharge Information: Activity (Unrestricted), Diet (Routine), Medications (None), Instructions (Kick counts labor precautions SROM precautions), Discharge to (Home), Accompanied by, Discarge date (January 12, 2024) LAUREL CANTRELL DO Jan 13, 2024 05:15
== END 2024-01-12 22:50 | disposition home or self-care (01) ==
LOC: LDRP 20:46
PROVIDERS: ADMIT Obstetrics & Gynecology; ATTEND Obstetrics & Gynecology
DX: O62.9 Abnormality of forces of labor, unspecified (principal); O42.912 Preterm premature rupture of membranes, unspecified as to length of time between rupture and onset of labor, second trimester; O26.892 Other specified pregnancy related conditions, second trimester; N89.8 Other specified noninflammatory disorders of vagina; Z3A.26 26 weeks gestation of pregnancy; Z88.6 Allergy status to analgesic agent; Z88.5 Allergy status to narcotic agent; Z87.891 Personal history of nicotine dependence
CPT/HCPCS: 59025; 76815; 81002; 84112; 87210; 94760; G0378; Q0114

== ENCOUNTER 2024-04-05 22:48 | Observation (INO) | payer MEDICAID ==
[~2024-04-05] VITALS: Ht 170.2 cm; Wt 82.6 kg
[~2024-04-05 22:48] MED LIST changes: +NITR-52 PO
--- NOTE | 2024-04-06 06:38 | DVHDS2 ---
Physician Discharge Progress N Final Diagnosis: Gestational HTN Operations or Procedures: Operations or Procedures NST Commentary: Commentary All BP's normal, not elevated Asymptomatic Condition on Discharge: Stable Disposition: Home Discharge Instructions: Diet: Regular Activity: No Restrictions, As Tolerated Follow Up/Referral: F/U w/ Primary OB within 1 week Medications: N/A Follow Up Care: Discharge Statement: "Patient was advised to return to the ER or call 911 if any headaches, dizziness, shortness of breath, chest pain, abdominal pain, bleeding, fevers, or worsening of medical condition. Patient was counseled about treatment plan, medications, possible side effects, patientverbalized understanding. All questions were answered to the best of my ability. This discharge took greater then 30 minutes in planning, reviewing documentation , counseling the patient, and discussing with other team members." Visit Coding OBGYN Date of Service: Apr 06, 2024 Billing Provider: DARELL MORENO DO LEAD PRESSER Common Visit Codes: 22028-DDM/OBS SAME DATE (HIGH) LEAD PRESSER Procedure Codes: 03817-99- NON-STRESS TEST DARELL MORENO DO Apr 06, 2024 06:38
== END 2024-04-06 00:27 | disposition home or self-care (01) ==
LOC: LDRP 22:48
PROVIDERS: ADMIT Obstetrics & Gynecology; ATTEND Obstetrics & Gynecology
DX: O13.3 Gestational [pregnancy-induced] hypertension without significant proteinuria, third trimester (principal); Z98.890 Other specified postprocedural states; Z79.899 Other long term (current) drug therapy; Z3A.38 38 weeks gestation of pregnancy
CPT/HCPCS: 59025; 81002; 94760; G0378

== ENCOUNTER 2024-04-07 11:00 | Observation (INO) | payer MEDICAID ==
[~2024-04-07] VITALS: Ht 170.2 cm; Wt 83.5 kg
[2024-04-07 11:50] LABS: Basophils # (auto) 0.1 10 ^3/uL (0-0.2); Basophils % (auto) 0.3 % (0.0-2.0); Eosinophils # (auto) 0.2 10 ^3/uL (0-0.8); Eosinophils % (auto) 1.2 % (0.0-7.0); Hematocrit 37.6 % (36.0-46.0); Hemoglobin 12.4 g/dL (12.2-16.2); Lymphocytes # (auto) 3.4 10 ^3/uL (0.4-5.4); Lymphocytes % (auto) 18.8 % (10.0-50.0); Mean Corpuscular Hemoglobin 29.6 pg (28.0-32.0); Mean Corpuscular Hgb Conc. 33.1 g/dL (32.0-36.0); Mean Corpuscular Volume 89.5 fL (80.0-100.0); Monocytes # (auto) 1.4 10 ^3/uL (0-1.3); Monocytes % (auto) 7.9 % (0.0-12.0); Neutrophils % (auto) 71.8 % (37.0-80.0); Platelet Count (auto) 299 10^3/uL (140-450); White Blood Cell 18.1 10^3/uL (4.4-10.8)
[2024-04-07 11:53] LABS: Urine Bacteria FEW /hpf (None Seen); Urine Blood Negative /uL (Negative); Urine Clarity Clear (Clear); Urine Color Light-Yellow (Yellow); Urine Protein, UAD Negative (Negative); Urine Specific Gravity 1.015 (1.001-1.035); Urine Squamous Epithelial Cell FEW /hpf (<5); Urine Urobilinogen Normal (Negative); Urine WBC 2 /HPF (0-5); Urine pH 6.5 (5.0-9.0)
[2024-04-07 12:01] LABS: INR 0.9 (0.9-1.15); Partial Thromboplastin Time 25.4 SEC (24.5-34.5); Prothrombin Time 9.6 sec (9.3-11.8)
[2024-04-07 12:05] LABS: Protein, Urine 11.1 mg/dL (1-14)
[2024-04-07 12:08] LABS: Creatinine, Urine 75.91 mg/dL (30.0-125.0); Urine Protein/Creatinine Ratio 0.15
[2024-04-07 12:10] LABS: Alanine Aminotransferase < 9 U/L (7-40); Albumin 3.6 g/dL (3.2-4.8); Alkaline Phosphatase 186 U/L (46-116); Anion Gap 8 (5-15); Aspartate Aminotransferase 14 U/L (13-40); BUN/Creatinine Ratio 11.1 (10.0-20.0); Bilirubin, Total 0.3 mg/dL (0.2-1.0); Blood Urea Nitrogen 6 mg/dL (9-23); Calcium 9.1 mg/dL (8.7-10.4); Carbon Dioxide 26 mmol/L (20-31); Chloride 102 mmol/L (98-107); Glucose 76 mg/dL (74-106); Potassium 3.7 mmol/L (3.5-5.1); Sodium 136 mmol/L (136-145); Total Protein 6.4 g/dL (5.7-8.2)
--- NOTE | 2024-04-07 12:16 | DVH ---
Procedure: US BIOPHYSICAL PROFILE 04/07/2024 11:31 AM Indication: PIH Comparison: BIOPHYSICAL PROFILE on DOS: 08/25/19, BIOPHYSICAL PROFILE on DOS: 08/10/19 Technique: Sonogram of gravid uterus utilizing grayscale and color techniques. FINDINGS: Single living intrauterine gestation. Presentation: Cephalic Placenta: Fundal, no previa or abruption heart rate: 171 bpm AMITA: 14.1 cm, DVP: 8.1 cm Maternal cervix: Not visualized Biophysical Profile: breathing score: 2 movement score: 2 tone: 2 Quantitative AMITA score: 2 Total score: 8/8 IMPRESSION: 1. Single living as above. 2. Biophysical profile score: 8/8. 3. tachycardia, 171 beats per minute.
[2024-04-07 12:19] LABS: Uric Acid 4.9 mg/dL (3.1-7.8)
--- NOTE | 2024-04-07 14:30 | DVHDS2 ---
Physician Discharge Progress N Final Diagnosis: r/o pih Operations or Procedures: Operations or Procedures nst 38wks,jeninfero Condition on Discharge: Good Disposition: Home Discharge Instructions: Diet: Regular Activity: Light activity Medications: na Follow Up Care: Specialist: 4d Discharge Statement: "Patient was advised to return to the ER or call 911 if any headaches, dizzi ness, shortness of breath, chest pain, abdominal pain, bleeding, fevers, or worsening of medical condition. Patient was counseled about treatment plan, medications, possible side effects, patientverbalized understanding. All questions were answered to the best of my ability. This discharge took greater then 30 minutes in planning, reviewing documentation, counseling the patient, and discussing with other team members." Visit Coding OBGYN Date of Service: Apr 07, 2024 Billing Provider: SERGIO WANG DO HOME HOSPICE RN Common Visit Codes: 46300-XYX/OBS SAME DATE (MOD) HOME HOSPICE RN Consultation Codes: [id number] CONSULT <40MIN, 31673-AESOFMLZN CONSULT <110MIN HOME HOSPICE RN Procedure Codes: 55849-35- NON-STRESS TEST SERGIO WANG DO Apr 07, 2024 14:29
== END 2024-04-07 12:56 | disposition home or self-care (01) ==
LOC: LDRP 11:00 → UNDOADMOB 11:00 → LDRP 11:12
PROVIDERS: ADMIT Obstetrics & Gynecology; ATTEND Obstetrics & Gynecology
DX: Z36.89 Encounter for other specified antenatal screening (principal); Z79.899 Other long term (current) drug therapy; Z3A.38 38 weeks gestation of pregnancy; Z88.6 Allergy status to analgesic agent; Z88.5 Allergy status to narcotic agent; Z87.891 Personal history of nicotine dependence; Z86.2 Personal history of diseases of the blood and blood-forming organs and certain disorders involving the immune mechanism
CPT/HCPCS: 36415; 59025; 76818; 80053; 81001; 81002; 82570; 84156; 84550; 85025; 85610; 85730; 94760; G0378

== ENCOUNTER 2024-04-10 07:05 | Inpatient (IN) | payer MEDICAID ==
[~2024-04-10] VITALS: Ht 170.2 cm; Wt 83.5 kg
--- NOTE | 2024-04-10 08:59 | DVH ---
BIOPHYSICAL PROFILE HISTORY: non reactive NST TECHNIQUE: Multiple real-time grayscale sonographic images through the gravid uterus of the fetus wi th duplex Doppler color flow. FINDINGS: BIOPHYSICAL PROFILE: breathing score: 2 movement score: 2 tone score: 2 Quantitative AMITA score: 2 Total score: 8 out of 8 Single live fetus in cephalic presentation. heart rate 131 beats per minute. Single live fetus . AMITA 12.4 cm. Placenta fundal position. IMPRESSION: 1. Biophysical profile score: 8 out of 8
[2024-04-10] MEDS ORDERED: LIDOCAINE 2%HCL (LOCAL ANESTH.) INJ 20ML MDV IJ PRN (09:00)
[2024-04-10] MEDS ORDERED: BUTORPHANOL TARTRATE 2 MG/1 ML VIAL IV PRN ×2 (09:00)
--- NOTE | 2024-04-10 09:04 | DVHHP2 ---
OB CC & HPI Date Date of Admission: Apr 10, 2024 Patient Identification: : 4 Para: 3 EDC: Apr 19, 2024 EGA: 38 + weeks Chief Complaints: Reason for admission: active labor Other reason for admission: Active labor Admission Nurse Assessment Rev: Yes History of Present Complaints Patient has good care see [facility] records Past Medical History Cardiac: No pertinent Hx Pulmonary: No pertinent Hx Central Nervous System: No pertinent Hx GI: No pertinent Hx Hemotology/Oncology: No pertinent Hx Hepatobiliary: No pertinent Hx Psychiatric: No pertinent Hx Musculoskeletal: No pertinent Hx Rheumotologic: No pertinent Hx Infectious Disease: No peritnent Hx ENT: No pertinent Hx Renal/: No pertinent Hx Endocrine: No pertinent Hx Dermatology: No pertinent Hx Past Surgical History: No pertinent Hx OB History OB History Care: Good Care Ultrasounds: Normal mid trimester US Obstetrical Complications: None Medical Complications: None Allergies: Coded Allergies: Aspirin (Verified Allergy, Unknown, Rash, 08/30/19) Cephalexin (Verified Allergy, Unknown, 08/30/19) Home Meds Reported Medications Nitrofurantoin (Nitrofurantoin) 100 Mg Cap, 1 CAP PO BID, #10 CAP 01/12/24 Vit W/ Ferrous Fumara (PNV FOLIC ACID + IRON MUL) + Iron Tab, 1 IRON OR, TAB 01/20/15 Current Medications Current Medications Medications (Trade) Dose Ordered Sig/Madelyn Route PRN Reason Start Time Stop Time Status Last Admin Lactated Ringer's 1,000 ml @ 125 mls/hr Q8H IV 04/10/24 09:00 UNV Witch Keerthi (Tucks) 1 pad PRN PRN TOP PERINEAL AREA DISCOMFORT 04/10/24 09:00 UNV Sodium Lauryl Sulfate (Phisoderm) 240 ml PRN PRN TOP PERINEAL AREA DISCOMFORT 04/10/24 09:00 UNV Benzocaine (Dermoplast) 1 applic PRN PRN TOP PERINEAL AREA DISCOMFORT 04/10/24 09:00 UNV Butorphanol Tartrate (Stadol Injection) 1 mg Q4HPRN PRN IV MODERATE PAIN (4-6 PAIN SCALE) 04/10/24 09:00 UNV Butorphanol Tartrate (Stadol Injection) 2 mg Q4HPRN PRN IV SEVERE PAIN (7-10 PAIN SCALE) 04/10/24 09:00 UNV Lidocaine HCl (Xylocaine) 20 ml ONCE PRN IJ PERINEAL AREA DISCOMFORT 04/10/24 09:00 UNV Family & Social History Family/Social History Blood Type: A+ Rubella: immune RPR/VDRL: Negative GBS Status: Negative HBsAG: Negative Review of Systems Constitutional: No symptom reported Ears, Nose, & Throat: No symptom reported Eyes: No symptom reported Pulmonary/Respiratory: No symptom reported Cardiovascular: No symptom reported Gastrointestinal: No symptom reported Genitourinary: No symptom reported Musculoskeletal: No symptom reported Skin: No symptom reported Psychiatric: No symptom reported Endocrine: No symptom reported Hemotologic/Lymphatic: No symptom reported OB Admission Exam Physical Exam HEENT: TMs Normal, Fontanelles Normal, Nasal Mucosa Normal, Eyes non-injected, Oropharynx Normal, PERRLA, Moist Membranes, EOMI Heart: Rhythm Normal Lungs: Clear Abdomen: Non tender Extremities: Normal Reflexes: Normal OB Plan Plan Admitting Diagnosis: labor intact Plan: Expectant Management LAUREL CANTRELL DO Apr 10, 2024 09:04
--- NOTE | 2024-04-10 09:06 | LDN2 ---
Labor and Delivery Note Date 04/10/24 Age 28 4 Para 3 AB 0 EDC 04/19/2024 EGA 38+ Diagnosis Labor Vaginal Delivery: VTX Vacuum Assisted: No Placenta: Spontaneous Sex: Female Weight PND Apgars 8/9 Nuchal Cord Transected: Yes (LOOSE REDUCED AFTER VERTEX OUT) Amniotic Fluid: Clear Anesthesia EPIDURAL Episiotomy: No Extension: No EBL 300 CC Labs Laboratory Tests 06/15/14 12:40: Hepatitis B Surface Antigen Negative, Rubella Antibody Positive Blood Bank 09/20/19 23:40: Blood Type A POSITIVE Complications NONE Conditions STABLE IMPROVED Electron Beam Welder Setter NONE PRESENT LAUREL CANTRELL DO Apr 10, 2024 09:06
[2024-04-10 09:30] LABS: Basophils # (auto) 0.1 10 ^3/uL (0-0.2); Basophils % (auto) 0.3 % (0.0-2.0); Eosinophils # (auto) 0.2 10 ^3/uL (0-0.8); Eosinophils % (auto) 0.7 % (0.0-7.0); Hematocrit 38.3 % (36.0-46.0); Hemoglobin 12.6 g/dL (12.2-16.2); Lymphocytes # (auto) 3.3 10 ^3/uL (0.4-5.4); Lymphocytes % (auto) 11.7 % (10.0-50.0); Mean Corpuscular Hemoglobin 29.9 pg (28.0-32.0); Mean Corpuscular Hgb Conc. 32.9 g/dL (32.0-36.0); Mean Corpuscular Volume 90.9 fL (80.0-100.0); Monocytes # (auto) 1.6 10 ^3/uL (0-1.3); Monocytes % (auto) 5.6 % (0.0-12.0); Neutrophils # (auto) 23.2 10 ^3/uL (1.6-8.6); Neutrophils % (auto) 81.7 % (37.0-80.0); Platelet Count (auto) 301 10^3/uL (140-450); Red Blood Cells 4.21 10^6/uL (4.0-5.20); Red Cell Distribution Width 12.9 % (11.8-14.3); White Blood Cell 28.4 10^3/uL (4.4-10.8)
[2024-04-10 09:31] LABS: Urine Bacteria None Seen /hpf (None Seen)
[2024-04-10 09:44] LABS: Alanine Aminotransferase 11 U/L (7-40); Albumin 3.7 g/dL (3.2-4.8); Anion Gap 9 (5-15); Aspartate Aminotransferase 22 U/L (13-40); BUN/Creatinine Ratio 8.6 (10.0-20.0); Calcium 8.9 mg/dL (8.7-10.4); Carbon Dioxide 23 mmol/L (20-31); Chloride 105 mmol/L (98-107); Glucose 79 mg/dL (74-106); Potassium 3.8 mmol/L (3.5-5.1); Sodium 137 mmol/L (136-145)
[2024-04-10 09:45] LABS: Bilirubin, Total 0.3 mg/dL (0.2-1.0); Total Protein 6.5 g/dL (5.7-8.2)
[2024-04-10] MEDS: LACTATED RINGER'S 1,000 ML IV SCH (09:45)
[2024-04-10] MEDS ORDERED: TERBUTALINE SULFATE 1 MG/ML 1ML VIAL SC PRN (09:45)
[2024-04-10 09:46] LABS: INR 0.9 (0.9-1.15); Partial Thromboplastin Time 25.4 SEC (24.5-34.5); Prothrombin Time 9.6 sec (9.3-11.8)
[2024-04-10 09:48] LABS: Alkaline Phosphatase 195 U/L (46-116); Blood Urea Nitrogen 5 mg/dL (9-23)
[2024-04-10 10:00] LABS: Urine Blood Negative /uL (Negative); Urine Clarity Clear (Clear); Urine Protein, UAD Negative (Negative); Urine Specific Gravity 1.003 (1.001-1.035); Urine Squamous Epithelial Cell FEW /hpf (<5); Urine Urobilinogen Normal (Negative); Urine WBC 1 /HPF (0-5)
[2024-04-10 10:05] LABS: Urine Color Straw (Yellow)
[2024-04-10 10:08] LABS: Amphetamine Screen, Urine Neg (NEGATIVE); Barbiturate Scree,Urine Neg (NEGATIVE); Benzodiazephine Screen, Urine Neg (NEGATIVE); Cannabinoid Screen, Urine Neg (NEGATIVE); Cocaine Screen, Urine Neg (NEGATIVE); Opiate Scree,Urine Neg (NEGATIVE); Phencyclidine Screen, Urine Neg (NEGATIVE)
[2024-04-10] MEDS ORDERED: ePHEDrine SULFATE 50 MG/ML AMP IV ONE (10:15)
[2024-04-10] MEDS ORDERED: NALOXONE HCL 0.4 MG/ML VIAL IV ONE (10:15)
[2024-04-10] MEDS: WITCH HAZEL-GLYCERIN PAD TOP PRN (10:28)
[2024-04-10] MEDS: DERMOPLAST 60ML BOTTLE TOP PRN (10:28)
[2024-04-10] MEDS: PHISODERM TOP SOLN 240ML BTL TOP PRN (10:28)
[2024-04-10] MEDS: ceFAZolin 2 GM/D5W50ml 50 ML IV ONE (11:10)
[2024-04-10] MEDS ORDERED: LIDOCAINE 1%-Mpf/Epinephrine 1:200,000 30ml VIAL ONE (11:30)
[2024-04-10] MEDS: fentaNYL CITRATE 100 MCG/2 ML VL IV ONE (12:02)
[2024-04-10] MEDS: ROPIVACAINE HCL 200 ML ONE (12:11)
--- NOTE | 2024-04-10 12:27 | EPIDURAL ---
Anesthesia Procedural Note - Epidural Informed consent obtained?: Yes Medication Administered: Fentanyl 100 mcg 2% Lidocaine Administered: 3 Sterile prept drape: Yes Spinal level of insertion: L3-L4 Test dose of lidocaine & Epine: Negative Infusion started: Yes Start time: 11:25 End time: 12:05 Procedure description Procedure description: Called for labor analgesia. Patient is at term, requesting epidural. Chart reviewed, history taken, patient examined. Patient has an elevated WBC count after tooth infection. She had a root canal a few ago and received oral antibiotics at that time. She has an impacted wisdom tooth that she was waiting to have extracted until after her delivery. The tooth is only mildly uncomfortable to her. She is afebrile, UA normal and has not ruptured. heart tracing was initially non-reactive on admission but after maternal IVF improved and is currently appropriate. I discussed the case with Dr Wilson and we agreed to start IV antibiotics prior to the epidural. Informed consent for PCEA obtained at 1125 (BP129/57 HR 89 spO23 99). Time out done. 2 grams IV ancef infusing. Sitting position, sterile prep and drape. Patient has curvature of her lumbar spine apparent on exam. L4-5 space infiltrated with 1% lido. Epidural needle unable to access space. Attempt made a space below without success. Epidural needle placed with HENRY at L3-4 at 5cm at 1146 (132/53 HR 105 spO2 98). Epidural catheter secured at 10cm. Aspiration and test dose (3cc 1.5% lido with epi) negative at 1148 (BP 121/65 HR 90 spO2 99). 100 mcg fentanyl and 3cc 2% PF lido given as bolus at 1149 (BP 115/53 HR 82 spO2 99). Patient reports good pain relief. 0.2% ropivacaine infusion started at 1202 (BP 121/51 HR 95 spO2 98). Will follow as needed. ANNETTE VERAS MD Apr 10, 2024 12:27
[2024-04-10] MEDS: LIDOCAINE HCL 2 %PF INJ 10ML AMP IJ ONE (12:32)
[2024-04-10] MEDS: Lidocaine W-Epinephrine 1.5%-1:200,000 INJ 10ml Vial ONE (12:32)
[2024-04-10] MEDS: LACT. RINGERS/OXYTOCIN 20UNITS 1,000 ML IV SCH (15:01)
[2024-04-10] MEDS: LACT. RINGERS/OXYTOCIN 20UNITS 500 ML IV ONE ×2 (18:03→18:05)
[2024-04-10] MEDS: ceFAZolin 1GM/50ML 50 ML IV SCH (18:10)
[2024-04-10] MEDS: IBUPROFEN 600 MG TAB PO PRN (18:11)
[2024-04-10 19:00] VITALS: BP 129/67; PULSE 97; RESP 15; TEMP 98.8; O2SAT 97
[2024-04-10 23:00] VITALS: BP 119/60; PULSE 78; RESP 16; TEMP 98.1; O2SAT 97
[2024-04-10] MEDS: ACETAMINOPHEN 325 MG TAB PO PRN (23:49)
[2024-04-11 03:00] VITALS: BP 112/65; PULSE 72; RESP 16; TEMP 98.4; O2SAT 97
[2024-04-11 06:40] VITALS: BP 136/76; PULSE 68; RESP 16; TEMP 97.7; O2SAT 98
[2024-04-11] MEDS: AMOXICILLIN TRIHYDRATE 250 MG CAP PO SCH (14:04)
[2024-04-11 15:30] VITALS: BP 114/67; PULSE 70; RESP 18; TEMP 98.2; O2SAT 99
--- NOTE | 2024-04-11 22:26 | DVHDS2 ---
Discharge Summary Date of Admission Apr 10, 2024 at 08:45 Date of Discharge: Apr 11, 2024 Admitting Diagnosis Labor Wounds: n/a Labs/Diagnostic Data: Laboratory Results Test 04/10/24 09:06 04/10/24 09:00 White Blood Count 28.4 10^3/uL (4.4-10.8) Red Blood Count 4.21 10^6/uL (4.0-5.20) Hemoglobin 12.6 g/dL (12.2-16.2) Hematocrit 38.3 % (36.0-46.0) Mean Corpuscular Volume 90.9 fL (80.0-100.0) Mean Corpuscular Hemoglobin 29.9 pg (28.0-32.0) Mean Corpuscular Hemoglobin Concent 32.9 g/dL (32.0-36.0) Red Cell Distribution Width 12.9 % (11.8-14.3) Platelet Count 301 10^3/uL (140-450) Mean Platelet Volume 8.5 fL (6.9-10.8) Neutrophils (%) (Auto) 81.7 % (37.0-80.0) Lymphocytes (%) (Auto) 11.7 % (10.0-50.0) Monocytes (%) (Auto) 5.6 % (0.0-12.0) Eosinophils (%) (Auto) 0.7 % (0.0-7.0) Basophils (%) (Auto) 0.3 % (0.0-2.0) Neutrophils # (Auto) 23.2 10 ^3/uL (1.6-8.6) Lymphocytes # (Auto) 3.3 10 ^3/uL (0.4-5.4) Monocytes # (Auto) 1.6 10 ^3/uL (0-1.3) Eosinophils # (Auto) 0.2 10 ^3/uL (0-0.8) Basophils # (Auto) 0.1 10 ^3/uL (0-0.2) Nucleated Red Blood Cells 0.0 % Prothrombin Time 9.6 sec (9.3-11.8) Prothrombin Time INR 0.90 (0.9-1.15) Activated Partial Thromboplast Time 25.4 SEC (24.5-34.5) Sodium Level 137 mmol/L (136-145) Potassium Level 3.8 mmol/L (3.5-5.1) Chloride Level 105 mmol/L (98-107) Carbon Dioxide Level 23 mmol/L (20-31) Anion Gap 9 (5-15) Blood Urea Nitrogen 5 mg/dL (9-23) Creatinine 0.58 mg/dL (0.550-1.02) Glomerular Filtration Rate Calc 125 mL/min (>90) BUN/Creatinine Ratio 8.6 (10.0-20.0) Serum Glucose 79 mg/dL (74-106) Calcium Level 8.9 mg/dL (8.7-10.4) Total Bilirubin 0.3 mg/dL (0.2-1.0) Aspartate Amino Transferase (AST) 22 U/L (13-40) Alanine Aminotransferase (ALT) 11 U/L (7-40) Alkaline Phosphatase 195 U/L (46-116) Total Protein 6.5 g/dL (5.7-8.2) Albumin 3.7 g/dL (3.2-4.8) Hepatitis C Antibody Negative (Negative) Urine Color Straw (Yellow) Urine Clarity Clear (Clear) Urine pH 7.0 (5.0-9.0) Urine Specific Minetto 1.003 (1.001-1.035) Urine Protein Negative (Negative) Urine Ketones Negative (Negative) Urine Blood Negative /uL (Negative) Urine Nitrite Negative (Negative) Urine Bilirubin Negative (Negative) Urine Urobilinogen Normal mg/dL (Negative) Urine Leukocyte Esterase Negative /uL (Negative) Urine RBC 1 /hpf (0 - 4) Urine Microscopic WBC 1 /HPF (0-5) Urine Squamous Epithelial Cells Few /hpf (<5) Urine Bacteria None seen /hpf (None Seen) Urine Glucose Normal mg/dL (Normal) Urine Opiates Screen Neg (NEGATIVE) Urine Fentanyl Screen Neg (NEGATIVE) Urine Barbiturates Screen Neg (NEGATIVE) Urine Phencyclidine Screen Neg (NEGATIVE) Urine Amphetamines Screen Neg (NEGATIVE) Urine Benzodiazepines Screen Neg (NEGATIVE) Urine Cocaine Screen Neg (NEGATIVE) Urine Cannabinoids Screen Neg (NEGATIVE) Other Laboratory Tests 04/10/24 09:06 Brief Hx & Hospital Course: Patient underwent with epidural no peritoneal or vaginal tears stable for discharge day 1 Consults/Reason for consult n/a Operations or Procedures Normal spontaneous vaginal delivery Condition at Discharge: Good Final Diagnosis/Problems List Status post stable Discharge Disposition: Home SNF Discharge Will this Physician continue t: No Discharge Instruct/Medications Diet: Regular Activity: Light activity Activity comment: Pelvic rest 8 weeks Follow Up/Referral: 2 weeks primary OBGYN Medications: None Discharge Statement: "Patient was advised to return to the ER or call 911 if any headaches, dizziness, shortness of breath, chest pain, abdominal pain, bleeding, fevers, or worsening of medical condition. Patient was counseled about treatment plan, medications, possible side effects, patientverbalized understanding. All questions were answered to the best of my ability. This discharge took greater then 30 minutes in planning, reviewing documentation, counseling the patient, and discussing with other team members." ASSESSMENT ASSESSMENT Assessment Visit Coding OBGYN Date of Service: Apr 11, 2024 Billing Provider: LAUREL CANTRELL DO JEWELRY FINISHER Common Visit Codes: [id number] CARE DISCHARGE JEWELRY FINISHER Procedure Codes: 21784-FMF DEL INCLUDING , 11732-QUCS W/ CARE LAUREL CANTRELL DO Apr 11, 2024 22:26
[2024-04-13 04:07] LABS: RPR Non Reactive (Non Reactive)
== END 2024-04-11 16:51 | disposition home or self-care (01) | DRG 560 ==
LOC: LDRP 07:05 → OBSVTOIN 08:45 → LDRP 08:49
PROVIDERS: ADMIT Obstetrics & Gynecology; ATTEND Obstetrics & Gynecology
PROC: 10E0XZZ Delivery of Products of Conception, External Approach (ICD-10-PCS; principal; 2024-04-10)
PROC: 3E0R3BZ Introduction of Anesthetic Agent into Spinal Canal, Percutaneous Approach (ICD-10-PCS; 2024-04-10)
PROC: 00HU33Z Insertion of Infusion Device into Spinal Canal, Percutaneous Approach (ICD-10-PCS; 2024-04-10)
DX: O69.81X0 Labor and delivery complicated by cord around neck, without compression, not applicable or unspecified (principal); Z37.0 Single live birth; Z3A.38 38 weeks gestation of pregnancy
CPT/HCPCS: 36415; 59025; 59409; 62282; 76818; 80053; 80307; 81001; 81002; 85025; 85610; 85730; 86592; 86780; 86803; 86850; 86900; 86901; 94760; 96360; 96361; 96365; G0378; J2590